=== PATIENT | female | born 1960 | race Asian ===

== ENCOUNTER → 2017-09-17 17:55 | Outpatient (CLI) | payer BC, OTHER ==
[~2017-09-17 17:55] MED LIST: LISI5TAB10 PO; MICROZIDE12.5 MG PO
== END | disposition home or self-care (01) ==
LOC: AMB 17:55
DX: M54.89 Other dorsalgia (principal)

== ENCOUNTER 2020-06-10 21:16 | Emergency (ER) | payer OTHER ==
[~2020-06-10] VITALS: Ht 157.5 cm; Wt 108.9 kg
[2020-06-10 21:57] VITALS: TEMP 101.7
[2020-06-10 23:45] LABS: PLATELET COUNT 174 K/uL (152-353)
[2020-06-11 00:09] LABS: POTASSIUM 4.3 mmol/L (3.6-5.2)
[2020-06-11 02:58] VITALS: BP 147/88
== END 2020-06-11 03:32 | disposition home or self-care (01) ==
LOC: ED 21:16
PROVIDERS: Family Medicine
DX: J12.9 Viral pneumonia, unspecified (principal); R11.0 Nausea; R53.83 Other fatigue
CPT/HCPCS: 80053; 81000; 82728; 85027; 85379; 96360; 96375; 99284; J2405; Q9963

== ENCOUNTER 2023-05-22 12:06 | Outpatient (CLI) | payer OTHER | END 2023-05-22 19:05 | disposition home or self-care (01) | LOC: US 12:06 | PROVIDERS: ATTEND Nurse Practitioner Family | DX: R10.9 Unspecified abdominal pain (principal) ==

== ENCOUNTER 2023-07-02 16:13 | Outpatient (CLI) | payer OTHER | END 2023-07-02 19:14 | disposition home or self-care (01) | LOC: RAD 16:13 | PROVIDERS: ATTEND Nurse Practitioner Family | DX: J40 Bronchitis, not specified as acute or chronic (principal) ==